=== PATIENT | male | born 1940 | race Caucasian/White ===

== ENCOUNTER 2016-09-28 13:44 | Inpatient (IN) | payer BC ==
--- NOTE | ~2016-09-28 | HP ---
History And Physical [place] [id number] [facility] [place]. [address] NAME: SUJATA TERESA : 39 STATUS : ADM IN PAT#: [id number] AGE: 76 ADM/REG DATE : 09/28/16 MR#: [id number] REPORT SERV DATE: 09/29/16 DICTATED BY: RANJAN BRAVO DATE: 09/28/16 REPORT STATUS : Draft TRANSCRIBED BY: AZEEM DATE: 09/28/16 DATE OF ADMISSION: 09/28/2016 REASON FOR ADMISSION: Evaluation for subacute right lower extremity ischemia. 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 Apparently, he has had an aortobifemoral bypass in the remote past. He has also had a right femoral to popliteal bypass with Dr. Quinn that dates back over a decade. He has had no followup with Dr. Mchugh in a long time. He apparently saw Dr. Negron, who said that his blood flow was pretty reasonable to his legs. This is all through the patient's history. There is no independent documentation of this. The patient was in his usual state of health up until about a week ago. On Sunday, he developed sudden onset of right lower extremity pain. He says that it is significant and unbearable. He came into the hospital for evaluation and treatment. Here, he was noted to have a femoral-popliteal bypass occlusions, so I was consulted for evaluation and treatment. The patient denies any other complaints. PAST MEDICAL HISTORY: Coronary artery disease, hypertension, atherosclerosis of his aortoiliac system as well as lower extremities. PAST SURGICAL HISTORY: Includes an aortobifemoral bypass as well as a right femoral to above knee popliteal bypass. He has had coronary artery bypass in the past and he had sounds like he just recently had a redo coronary artery bypass with mitral valve replacement with Dr. Grimm. He has had an inguinal hernia repair. MEDICATIONS: Documented on the chart and were reviewed. ALLERGIES: NONE. REVIEW OF SYSTEMS: A complete review of systems was performed and is negative with the exception of the aforementioned findings. FAMILY HISTORY: Noncontributory. PHYSICAL EXAMINATION: VITAL SIGNS: Documented on the chart and are reviewed. GENERAL: The patient is awake, alert, and oriented. No apparent distress. HEAD AND NECK: Benign without any carotid bruits. HEART: Regular rate and rhythm. LUNGS: Clear. ABDOMEN: Soft, nontender, nondistended with a nonaneurysmal aorta. EXTREMITIES: He has a well-healed midline incision. He has palpable left femoral pulse. I think I can feel a right femoral pulse. I do not appreciate more distal pulses. He has no significant edema or ischemic ulcerations. He has signals at his ankle, but his right foot History And Physical [address] [place]. [address] NAME: SUJATA TERESA : 39 STATUS : ADM IN [facility]#: [id number] AGE: 76 ADM/REG DATE : 09/28/16 MR#: [id number] REPORT SERV DATE: 09/29/16 DICTATED BY: RANJAN BRAVO DATE: 09/28/16 REPORT STATUS : Draft TRANSCRIBED BY: AZEEM DATE: 09/28/16 is cooler than his left. He has no motor deficit. NEUROLOGIC: Grossly nonfocal. MUSCULOSKELETAL: Otherwise, benign. LABORATORY DATA: His laboratory investigations reveal a slightly elevated creatinine. It is almost normal. His arterial duplex shows that his right femoral to above knee popliteal bypass graft is occluded. There is minimal flow into his anterior tibial artery. ASSESSMENT AND PLAN: It looks like this gentleman has [place] 2A acute right lower extremity ischemia. I talked to him about the risks, benefits, and alternatives of angiography with intervention. We also talked about open thrombectomy and thrombolysis. He is agreeable to all of this. If we perform a percutaneous thrombectomy and thrombolysis, he understands that this may be a staged procedure with thrombolytics being infused overnight. He is agreeable to all of this with full understanding of the risks of open operations as well as percutaneous interventions. He understands what thrombolytics are and the risks that go along with them. PADMINI/AZEEM Ranjan Bravo M.D. / [id number] CC: Jj Neal MD
--- NOTE | ~2016-09-28 | OP ---
Record Of Operation [facility] [address] [place]. [address] NAME: SUJATA TERESA : 39 STATUS : ADM IN PAT#: [id number] AGE: 76 ADM/REG DATE : 09/28/16 MR#: [id number] REPORT SERV DATE: 09/29/16 DICTATED BY: RANJAN BRAVO DATE: 09/28/16 REPORT STATUS : Draft TRANSCRIBED BY: AZEEM DATE: 09/28/16 DATE OF PROCEDURE: 09/28/2016 PREOPERATIVE DIAGNOSIS: [place] 2A acute right lower extremity ischemia. POSTOPERATIVE DIAGNOSIS: [place] 2A acute right lower extremity ischemia. PROCEDURE: 1. Aortogram with right lower extremity runoff. 2. AngioJet pharmacomechanical thrombectomy and thrombolysis of the right limb of the aortobifemoral bypass, right common femoral artery, and right yesbmua-[id number] knee popliteal bypass. SURGEON: Ranjan Bravo M.D. INSURANCE VERIFICATION SPECIALIST: Esthela. ANESTHESIA: General. INDICATIONS: The patient is a 76-year-old gentleman, who has had an aortobifemoral bypass in the past as well as a paptlol-tu-rdefc knee popliteal bypass, who presents with acute onset of right lower extremity pain that started about a week ago. He is, therefore, consented for an intervention as he is noted to have an occluded bypass. DESCRIPTION OF PROCEDURE: After informed consent was obtained, the patient was taken to the operating room and placed in the supine position on the operating table. He was intubated and general anesthesia was administered. The patient's groins and right lower extremity were prepped and draped in the usual sterile fashion. An ultrasound-guided access was obtained of the left common femoral artery using a micropuncture technique. An oblique angiogram confirmed puncture within the castellano of the left limb of the bypass. I placed a catheter into the perirenal aorta. An aortogram demonstrated no hemodynamically significant aortic disease with patent renal arteries. The left limb of the aortobifemoral bypass was patent. The right limb was occluded. More distal flow was not well visualized. I tried to get up and over the aortograft bifurcation but was unsuccessful. Thus, ultrasound-guided access was obtained of the right limb of the aortobifemoral bypass. I placed a wire up retrograde and snared it from the left transfemoral approach. I was able to get my sheath up and over the aortic bifurcation into the right limb of the aortofemoral bypass. I obtained an angiogram from this point that demonstrated that the limb was occluded. There was thrombus within the common femoral artery as well as the femoral-popliteal bypass. I was able to get a wire and catheter down into the right popliteal artery and obtain an angiogram that demonstrated that there was flow in the popliteal artery, although it was diminutive. There was 3-vessel runoff, although the posterior tibial artery had a high origin off the popliteal artery. I then performed AngioJet pharmacomechanical thrombectomy and thrombolysis of the right limb of the aortobifemoral bypass as well as the common femoral artery and a femoral popliteal bypass. I extended the percutaneous thrombectomy into the popliteal artery. Sequential imaging showed improvement. Having said that, there Record Of Operation [address] [place]. [address] NAME: SUJATA TERESA : 39 STATUS : ADM IN PAT#: [id number] AGE: 76 ADM/REG DATE : 09/28/16 MR#: [id number] REPORT SERV DATE: 09/29/16 DICTATED BY: RANJAN BRAVO DATE: 09/28/16 REPORT STATUS : Draft TRANSCRIBED BY: AZEEM DATE: 09/28/16 was still residual thrombus. I exchanged out my sheath for a short 6-Slovenian sheath. I then placed an infusion catheter that spanned from the aortic bifurcation down into the femoral- popliteal bypass. Heparin was infused through the sheath and tPA through the catheter. The catheter and the sheath were sutured in place. The patient tolerated the procedure well without any intraprocedural complications noted. CONTINUOUS WAVE OPERATOR/AZEEM Ranjan Bravo M.D. / [id number] CC: Jj Neal MD
--- NOTE | ~2016-09-28 | OP ---
Record Of Operation [facility] [address] [place]. [address] NAME: SUJATA TERESA : 39 STATUS : DIS IN PAT#: [id number] AGE: 76 ADM/REG DATE : 09/28/16 MR#: [id number] REPORT SERV DATE: 10/01/16 DICTATED BY: RANJAN BRAVO DATE: 10/01/16 REPORT STATUS : Draft TRANSCRIBED BY: AZEEM DATE: 10/01/16 DATE OF PROCEDURE: 09/29/2016 PREOPERATIVE DIAGNOSIS: [place] 2a acute right lower extremity ischemia. POSTOPERATIVE DIAGNOSIS: [place] 2a acute right lower extremity ischemia. PROCEDURE: Right lower extremity arteriogram after thrombolysis. SURGEON: Ranjan Bravo M.D. PROJECT INTERN: None. ANESTHESIA: MAC plus local. INDICATION: The patient is a 76-year-old gentleman, who has a history of atherosclerosis of his aortoiliac segment as well as his femoral popliteal segment that had required bypass in the remote past. He presented with subacute ischemia and began thrombolysis yesterday. He returns for reassessment. DESCRIPTION OF PROCEDURE: After informed consent was obtained, the patient was taken to the operating room and placed in the supine position on the operating table. Monitored anesthesia was administered. The patient's groins were prepped and draped in THE usual sterile fashion. I began with an angiogram through the existing catheter and found that there was no significant thrombus persisting. There was three-vessel runoff down to the leg. Imaging of the graft at bifurcation up in the retroperitoneum was not well visualized. Thus, I exchanged out my catheter for a 6-Upper Sorbian 45-cm sheath that I placed such that the tip was in the right common iliac artery and then the left common iliac artery. I obtained imaging that demonstrated no hemodynamically significant stenosis or thrombus present. Thus, I withdrew my wire, catheter, and sheath, and used a ProGlide device to close the arteriotomy. The patient tolerated the procedure well without any intraprocedural complications noted. PADMINI/AZEEM Ranjan Bravo M.D. / [id number] CC: Jj Neal MD
[2016-09-28 12:44] LABS: BASOPHILS 0.4 %; BASOPHILS ABSOLUTE 0.03 10/3/uL (0.0-0.16); EOSINOPHILS ABSOLUTE 0.15 10/3/uL (0.0-0.53); ER CBC TAT 0 Hrs 10 Mins; HEMATOCRIT 37.8 % (40.0-51.0); HEMOGLOBIN 12.7 g/dL (13.6-17.8); IMMATURE GRANULOCYTES 0.3 %; IMMATURE GRANULOCYTES ABSOLUTE 0.02 10/3/uL (0.0-0.11); LYMPHOCYTES 20.7 %; LYMPHOCYTES ABSOLUTE 1.56 10/3/uL (0.67-4.30); MANUAL DIFF NO %; MEAN CORPUS HGB CONC 33.6 g/dL (32.0-36.0); MEAN CORPUSCULAR HEMOGLOB 28.4 pg (26.0-34.0); MEAN CORPUSCULAR VOLUME 84.6 fL (80-100); MEAN PLATELET VOLUME 8.7 fL (9.2-13.0); MONOCYTES 7.8 %; MONOCYTES ABSOLUTE 0.59 10/3/uL (0.21-1.20); NEUTROPHILS 68.8 %; NEUTROPHILS ABSOLUTE 5.19 10/3/uL (2.02-8.40); PLATELET COUNT 148 10/3/uL (150-400); RBC DISTRIBUTION WIDTH 14.6 % (12.0-16.0); RED CELL COUNT 4.47 10/6/uL (4.7-6.1); WHITE BLOOD CELLS 7.5 10/3/uL (4.5-10.5)
[2016-09-28 12:49] LABS: INTERNATIONAL NORMAL RATI 1.2 UNITS (-); PROTIME (NOT ORD) 15.3 SEC (12.0-14.5)
[2016-09-28 12:57] LABS: ALBUMIN 3.3 G/DL (3.5-5.0); CALCIUM, SERUM 8.9 MG/DL (8.5-10.4); CHLORIDE, SERUM 101 MMOL/L (96-112); CO2 (CARBON DIOXIDE) 29 MMOL/L (24-34); CREATININE 1.32 MG/DL (0.70-1.30); GFR AFRICAN AMERICAN 60 ML/MIN (>=60); GFR NON AFRICAN AMERICAN 52 ML/MIN (>=60); GLUCOSE, SERUM 90 MG/DL (60-99); POTASSIUM, SERUM 4.3 MMOL/L (3.5-5.3); SGOT(AST) 18 U/L (5-40); SGPT(ALT) 14 U/L (5-65); SODIUM, SERUM 139 MMOL/L (135-148); TOTAL BILIRUBIN 0.4 MG/DL (0-1.2); TOTAL PROTEIN 8.2 G/DL (6.0-8.5)
[2016-09-28 12:58] LABS: A/G RATIO 0.7 (0.7-1.9); ALKALINE PHOSPHATASE 92 U/L (45-117); BUN (BLOOD UREA NITROGEN) 15 MG/DL (6-23); GLOBULIN 4.9 G/DL (2.5-4.1)
[2016-09-28] MEDS ORDERED: ZYRTEC ALLGY10 MG PO (14:07)
[2016-09-28] MEDS ORDERED: TUMSROLL PO (14:07)
[2016-09-28] MEDS ORDERED: PROAIR HFA INH (14:07)
[2016-09-28] MEDS ORDERED: HALF81 PO (14:07)
[2016-09-28] MEDS ORDERED: ZESTRIL20 MG PO (14:08)
[2016-09-28] MEDS ORDERED: MEVACOR PO (14:08)
[2016-09-28] MEDS ORDERED: ULTRAM50 PO (14:08)
[2016-09-28] MEDS ORDERED: LOP25 PO (14:09)
[2016-09-28 21:10] LABS: HEMATOCRIT 37.3 % (40.0-51.0); HEMOGLOBIN 12.6 g/dL (13.6-17.8)
[2016-09-28 21:18] LABS: FIBRINOGEN 261 MG/DL (230-462)
[2016-09-28 21:24] LABS: PARTIAL THROMBO TIME 137.6 SEC (22.5-37.2)
[2016-09-29 03:40] LABS: BASOPHILS 0.7 %; BASOPHILS ABSOLUTE 0.06 10/3/uL (0.0-0.16); EOSINOPHILS 1.3 %; EOSINOPHILS ABSOLUTE 0.12 10/3/uL (0.0-0.53); HEMATOCRIT 34.7 % (40.0-51.0); HEMOGLOBIN 11.8 g/dL (13.6-17.8); IMMATURE GRANULOCYTES 0.2 %; IMMATURE GRANULOCYTES ABSOLUTE 0.02 10/3/uL (0.0-0.11); LYMPHOCYTES 13.2 %; LYMPHOCYTES ABSOLUTE 1.22 10/3/uL (0.67-4.30); MEAN CORPUSCULAR HEMOGLOB 28.4 pg (26.0-34.0); MEAN CORPUSCULAR VOLUME 83.4 fL (80-100); MEAN PLATELET VOLUME 8.8 fL (9.2-13.0); MONOCYTES 5.8 %; MONOCYTES ABSOLUTE 0.53 10/3/uL (0.21-1.20); NEUTROPHILS 78.8 %; NEUTROPHILS ABSOLUTE 7.26 10/3/uL (2.02-8.40); PLATELET COUNT 115 10/3/uL (150-400); RBC DISTRIBUTION WIDTH 14.6 % (12.0-16.0); RED CELL COUNT 4.16 10/6/uL (4.7-6.1); WHITE BLOOD CELLS 9.2 10/3/uL (4.5-10.5)
[2016-09-29 03:41] LABS: MANUAL DIFF NO %
[2016-09-29 03:59] LABS: BUN (BLOOD UREA NITROGEN) 14 MG/DL (6-23); CALCIUM, SERUM 7.9 MG/DL (8.5-10.4); CHLORIDE, SERUM 107 MMOL/L (96-112); CO2 (CARBON DIOXIDE) 23 MMOL/L (24-34); CREATININE 1.11 MG/DL (0.70-1.30); GFR AFRICAN AMERICAN 74 ML/MIN (>=60); GFR NON AFRICAN AMERICAN 64 ML/MIN (>=60); GLUCOSE, SERUM 114 MG/DL (60-99); POTASSIUM, SERUM 4.1 MMOL/L (3.5-5.3); SODIUM, SERUM 139 MMOL/L (135-148)
[2016-09-29 04:02] LABS: FIBRINOGEN 157 MG/DL (230-462)
[2016-09-29 04:03] LABS: PARTIAL THROMBO TIME > 150.0 SEC (22.5-37.2)
[2016-09-29 04:23] LABS: BASOPHILS 0.5 %; BASOPHILS ABSOLUTE 0.05 10/3/uL (0.0-0.16); EOSINOPHILS 1.4 %; EOSINOPHILS ABSOLUTE 0.13 10/3/uL (0.0-0.53); HEMATOCRIT 35.5 % (40.0-51.0); HEMOGLOBIN 11.8 g/dL (13.6-17.8); IMMATURE GRANULOCYTES 0.2 %; IMMATURE GRANULOCYTES ABSOLUTE 0.02 10/3/uL (0.0-0.11); LYMPHOCYTES 12.1 %; LYMPHOCYTES ABSOLUTE 1.12 10/3/uL (0.67-4.30); MEAN CORPUS HGB CONC 33.2 g/dL (32.0-36.0); MEAN CORPUSCULAR HEMOGLOB 27.8 pg (26.0-34.0); MEAN CORPUSCULAR VOLUME 83.5 fL (80-100); MONOCYTES 6.2 %; MONOCYTES ABSOLUTE 0.58 10/3/uL (0.21-1.20); NEUTROPHILS 79.6 %; NEUTROPHILS ABSOLUTE 7.39 10/3/uL (2.02-8.40); PLATELET COUNT 111 10/3/uL (150-400); RBC DISTRIBUTION WIDTH 14.8 % (12.0-16.0); RED CELL COUNT 4.25 10/6/uL (4.7-6.1); WHITE BLOOD CELLS 9.3 10/3/uL (4.5-10.5)
[2016-09-29 04:25] LABS: MANUAL DIFF NO %
[2016-09-29 04:31] LABS: PARTIAL THROMBO TIME 59.9 SEC (22.5-37.2)
[2016-09-29 04:36] LABS: FIBRINOGEN 149 MG/DL (230-462)
[2016-09-29 04:41] LABS: BUN (BLOOD UREA NITROGEN) 15 MG/DL (6-23); CALCIUM, SERUM 8.1 MG/DL (8.5-10.4); CHLORIDE, SERUM 106 MMOL/L (96-112); CO2 (CARBON DIOXIDE) 25 MMOL/L (24-34); CREATININE 1.13 MG/DL (0.70-1.30); GFR AFRICAN AMERICAN 72 ML/MIN (>=60); GFR NON AFRICAN AMERICAN 62 ML/MIN (>=60); POTASSIUM, SERUM 4.2 MMOL/L (3.5-5.3); SODIUM, SERUM 138 MMOL/L (135-148)
[2016-09-29 04:42] LABS: GLUCOSE, SERUM 78 MG/DL (60-99)
== END 2016-09-29 18:04 | disposition home or self-care (01) | DRG 272 ==
LOC: ER 13:44 → CVICU 19:30 → SDC/OF 09-29 14:27 → SSU1 09-29 15:21
PROVIDERS: Emergency Medicine; Surgery
PROC: B44FZZ3 Ultrasonography of Right Lower Extremity Arteries, Intravascular (ICD-10-PCS; 2016-09-28)
PROC: 04HK33Z Insertion of Infusion Device into Right Femoral Artery, Percutaneous Approach (ICD-10-PCS; 2016-09-28)
PROC: B41D1ZZ Fluoroscopy of Aorta and Bilateral Lower Extremity Arteries using Low Osmolar Contrast (ICD-10-PCS; principal; 2016-09-28 15:30)
PROC: 04CK3ZZ Extirpation of Matter from Right Femoral Artery, Percutaneous Approach (ICD-10-PCS; 2016-09-28 15:30)
PROC: 04CM3ZZ Extirpation of Matter from Right Popliteal Artery, Percutaneous Approach (ICD-10-PCS; 2016-09-28 15:30)
PROC: 3E05317 Introduction of Other Thrombolytic into Peripheral Artery, Percutaneous Approach (ICD-10-PCS; 2016-09-28 15:30)
PROC: B41F1ZZ Fluoroscopy of Right Lower Extremity Arteries using Low Osmolar Contrast (ICD-10-PCS; 2016-09-29)
DX: T82.898A Other specified complication of vascular prosthetic devices, implants and grafts, initial encounter (principal); I10 Essential (primary) hypertension; I70.203 Unspecified atherosclerosis of native arteries of extremities, bilateral legs; F17.210 Nicotine dependence, cigarettes, uncomplicated; I25.10 Atherosclerotic heart disease of native coronary artery without angina pectoris
CPT/HCPCS: 36246; 36415; 37184; 37211; 37214; 75625; 75710; 80048; 80053; 85014; 85018; 85025; 85384; 85610; 85730; 86850; 86900; 86901; 87641; 93005; 93926; 93971; 99285; A9270-GY; C1757; C1760; C1769; C1887; C1894; J0690; J2370; J2710; J2997; J3010; Q9966